=== PATIENT | female | born 1945 | race Caucasian/White ===

== ENCOUNTER 2023-09-23 05:43 | Emergency (ER) | payer MEDICARE, BC ==
[2023-09-23] MEDS ORDERED: Sodium Chloride 0.9% 10 ML Syringe FLUSH PRN (05:51)
[2023-09-23 06:08] LABS: BASOPHILS PERCENT AUTO 0.4 % (0.0-1.0); EOSINOPHILS PERCENT AUTO 5.9 % (1.0-3.0); HEMATOCRIT 39.8 % (37.0-47.0); HEMOGLOBIN 13.1 g/dL (12.0-16.0); LYMPHOCYTES PERCENT AUTO 39.5 % (20.5-50.1); MEAN CORPUSCULAR HGB CONC 32.9 g/dL (33.0-35.0); MEAN CORPUSCULAR VOLUME 91.3 fL (80-100); MONOCYTES PERCENT AUTO 10.1 % (2-8); NEUTROPHILS PERCENT AUTO 44.1 % (42.2-75.2); PLATELET COUNT,PLT 226 10^3/uL (150-450); RED BLOOD CELL COUNT 4.36 10^6/uL (4.2-5.4); WHITE BLOOD CELL COUNT,WBC 9.3 10^3/uL (5.0-10.0)
[2023-09-23] MEDS ORDERED: Hydrochlorothiazide 25 MG Tab PO ONE (06:26)
[2023-09-23] MEDS ORDERED: Lisinopril 20 MG Tab PO ONE (06:26)
[2023-09-23 06:27] LABS: INR 0.9 (0.9-1.2); PROTHROMBIN TIME 9.2 SEC (9.0-12.0); PTT,PARTIAL THROMBOPLSTIN TIME 25.1 SEC (22.0-34.0)
[2023-09-23 06:33] LABS: ALBUMIN 3.7 g/dL (3.4-5.0); ANION GAP 14.5 mEq/L (7-13); BILIRUBIN TOTAL 0.4 mg/dL (0.2-1.0); BUN/CREATININE RATIO 25.5 (No establ ref range); CALCIUM 8.9 mg/dL (8.5-10.1); CREATININE 1.02 mg/dL (0.55-1.02); EST CRCL DRUG DOSING (CG) 39.89 mL/min; MAGNESIUM 1.9 mg/dL (1.8-2.4); POTASSIUM,K 3.5 mmol/L (3.5-5.1); PROTEIN TOTAL,TP 7.4 g/dL (6.4-8.2)
[2023-09-23 06:49] LABS: INFLUENZA A NAA NEGATIVE (NEGATIVE); INFLUENZA B NAA NEGATIVE (NEGATIVE); RESPIRATORY SYNCYTIAL VIR NAA NEGATIVE (NEGATIVE)
[2023-09-23 06:51] LABS: CORONAVIRUS COVID-19 NAA POSITIVE (NEGATIVE)
== END 2023-09-23 07:05 | disposition home or self-care (01) ==
LOC: DL.ED 05:43
DX: U07.1 COVID-19 (principal)
CPT/HCPCS: 0241U; 36415; 80053; 82947; 83735; 84484; 85025; 85610; 85730; 93005; 93010; 99284; A9270

== ENCOUNTER 2025-03-03 22:27 | Emergency (ER) | payer MEDICARE, BC | END 2025-03-03 23:32 | disposition left against medical advice (07) | LOC: DL.ED 22:27 | DX: Z53.21 Procedure and treatment not carried out due to patient leaving prior to being seen by health care provider (principal) ==